=== PATIENT | female | born 1975 | race Caucasian/White ===

== ENCOUNTER 2017-09-26 09:24 | Emergency (ER) | payer BC ==
--- NOTE | 2017-09-26 09:52 | ERNOTE ---
Lower Extremity HPI - Narrative Date of Service: 09/26/17 - General Lower Extremities Pain: ankle: right Time Seen by Provider: 09/26/17 09:42 Source: patient Exam Limitations: no limitations - Immun/Allergies/Home Medications Immunizations: IMMUNIZATION HX History of Influenza Vaccine No Hx Pneumococcal Vaccination No Allergies/Adverse Reactions: Allergies Allergy/AdvReac Type Severity Reaction Status Date / Time No Known Allergies Allergy Unverified 09/26/17 09:35 Home Medications: HOME MEDICATIONS Sertraline HCl [Zoloft] 100 mg PO DAILY 09/26/17 [Last Taken Unknown] - History of Present Illness Narrative: Patient presents to the ED for right ankle injury. This happened last night she she tripped down some stairs. She relates that she fell onto her ankle and the stair hit her lateral right ankle, her ankle then seemed to bend in. She denies any other injuries with this event. No head injury, no knee or hip pain. No back pain. She has crutches and has been using them since this injury. Pain can be severe with weight bearing. No focal N/T/W. No foot pain. Most pain lateral ankle. Has not seen anyone else for this. Occurred: other - midnight last night Location of Incident: home Method of Injury: Reports: fell, twisted Reason for Fall: Reports: slipped Loss of Consciousness: Reports: no loss of consciousness Modifying Factors - (Improves): Reports: rest Modifying Factors - (Worsens): Reports: other - ambulation Associated Symptoms: Denies: dizzy/light headedness, headache, weakness, sensory loss Other Injuries: Reports: none Subsequent Symptoms: Denies: sensory loss, numbness, motor loss Prior Treament: Denies: recently seen Review of Systems - Review of Systems Constitutional: Absent: fever Respiratory: Absent: shortness of breath Cardiology: Absent: chest pain Gastrointestinal/Abdominal: Absent: abdominal pain Musculoskeletal: Present: See HPI Skin: Present: other - no laceration Neurological: Absent: weakness, numbness - Patient's Past Medical History Patient History - Medical: Depression Patient History - Cardiac/Respiratory: No pertinent hx Patient History - Cancer: No Hx of Cancer Patient History - Surgical Procedures: No surgical history Patient History - Other: None - Social History Living Situations: home Psych History: Hx of Depression Smoking Status: Current every day smoker - Immunizations Hx Pneumococcal Vaccination: No History of Influenza Vaccine: No Physical Exam - Physical Exam General Appearance: Present: alert, no apparent distress Head Exam: Present: normal inspection, no evidence of injury Eye Exam: Normal inspection: bilateral, PERRL: bilateral Ears, Nose, Throat: Present: normal ENT inspection Neck: Present: normal inspection, other - no spinal tenderness Respiratory: Present: no respiratory distress, normal breath sounds, no accessory muscle use, lungs clear Cardiovascular/Chest: Present: regular rate, rhythm, normal peripheral pulses, other - strong DP pulses Gastrointestinal/Abdominal: Present: normal bowel sounds, nontender, soft. Absent: tenderness Back Exam: Present: normal range of motion, no vertebral tenderness Extremity Exam: Present: other - Right hip and knee non-tender. There is lateral right ankle swelling without laceration. Tenderness lateral right ankle. No foot tenderness. Basurto testing reveals Achilles intact. Pain limits exam but no gross instability of the ankle joint. No other point bone tenderness found. No compartment syndrome. Strong pulses. Neurological Exam: Present: alert, normal mood/affect, no motor/sensory deficits Skin Exam: Present: normal color, warm/dry, other - no acute lacerations seens ED Progress - Vital Signs Patient's Vital Signs:: I have reviewed the patient's vital signs. Vital Signs: Vital Signs 09/26/17 09:27 Temperature 36.4 C L Pulse Rate 78 Respiratory 12 Rate Blood Pressure 122/63 O2 Sat by Pulse 99 Oximetry - X-Ray X-Ray #1 X-Ray: ankle Interpretation: Interp. by me X-ray Comments: I reviewed ankle images as well as official radiology report - Progress/Reassessment Chief Complaint: Ankle Injury/ Pain Progress Note-Subjective: 09/26/17 11:[address] Machuca who reviewed the images. He recommends CAM boot and office follow-up next week. D/W Patient who is agreeable. She already has her crutches here and has been using them. I discussed warning signs and reasons to return as well as the need for close f/u. Departure Clinical Impression: Ankle fracture, right - Departure Disposition: Home self-care Condition: Stable Instructions: Ankle Fracture, [id number] Additional Instructions: Rest. Ice. Elevation. use your home pain medications. I spoke with Dr Machuca, he wants to see you in the office nect week, please call today for an appointment time. Use CAM boot and crutches as directed. Return for increased pain, numbness, tingling, weakness or if your condition worsens or changes in any way. Referrals: Bridget Otero MD [Primary Care Provider] -
[2017-09-26 10:17] VITALS: BP 120/64
== END 2017-09-26 11:40 | disposition home or self-care (01) ==
LOC: ER 09:24
PROC: 2W3QX1Z Immobilization of Right Lower Leg using Splint (ICD-10-PCS; principal; 2017-09-26)
DX: M84.471A Pathological fracture, right ankle, initial encounter for fracture (principal); W10.2XXA Fall (on)(from) incline, initial encounter; Y93.9 Activity, unspecified; Y92.008 Other place in unspecified non-institutional (private) residence as the place of occurrence of the external cause; F17.200 Nicotine dependence, unspecified, uncomplicated